=== PATIENT | female | born 1995 | race Caucasian/White ===

== ENCOUNTER 2019-01-25 22:54 | Emergency (ER) | payer BC ==
[2019-01-25 23:59] LABS: #Eosinphils 0.1 thou/uL (0.0-0.7); #Lymphocytes 3.9 thou/uL (1.20-3.40); #Monocytes 0.5 thou/uL (0.11-0.59); #Neutrophils 5.6 thou/uL (1.40-6.50); %Basophils 0.1 % (0.0-1.0); %Eosinophils 0.8 % (0.0-10.0); %Lymphocytes 38.8 % (21.0-51.0); %Monocytes 5.2 % (0.0-10.0); %Neutrophils 55.1 % (42.0-75.0); Hemoglobin 9.8 g/dL (12.0-16.0); Mean Corpuscular Hemoglobin 20.6 pg (27.0-31.0); Mean Corpuscular Volume 66.4 fL (78.0-98.0); Mean Platelet Volume 5.6 fL (7.4-10.4); Platelet Count 246 thou/uL (130-400); RBC Distribution Width 20.9 % (11.5-14.5); Red Blood Cell (RBC) Count 4.76 mill/uL (4.20-5.40); White Blood Cell (WBC) Count 10.1 thou/uL (4.8-10.8)
[2019-01-26 01:28] LABS: Bacteria/HPF 1+ HPF (None Seen); Bilirubin Negative (Negative); Blood, Urine 2+ (Negative); Clarity Clear (Clear); Glucose, Urine (Dipstick) Normal (Negative); Leukocyte Negative Leu/uL (Negative); Nitrite Negative (Negative); Protein, Urine (Dipstick) Negative (Neg-Trace); RBC/HPF 0-3 HPF (0-3); Squamous Epithelial 0-3 HPF (0-3); Urobilinogen Normal mg/dL (Less than 2); WBC/HPF 0-3 HPF (0-3)
--- NOTE | 2019-01-26 06:08 | ULT ---
FIRST TRIMESTER OBSTETRICAL ULTRASOUND: INDICATIONS: History of vaginal spotting and . FINDINGS: There is a single intrauterine gestational sac, containing a pole. Mean sac diameter is 4.05 c m, giving an estimated gestational age of 9 weeks 4 days. The crown-rump length is 1.98 cm, giving an estimated gestational age of 8 weeks 4 days. The average gestational age by ultrasound is 9 weeks 1 day with an estimated due date of 08/30/2019. Clinical age is 11 weeks 1 day with an estimated due date of 08/16/2019. The uterus measures 12.4 x 5.9 x 7.5 cm. The left ovary measures 3.6 x 2 x 1.9 cm. There is normal flow to the left ovary. The right ovary is not well seen. There is a subchorionic hemorrhage seen along the superior aspect of the gestational sac, measuring 1 .7 cm. There is no demonstrable cardiac activity associated with the pole. IMPRESSION: 1. No demonstrable heart tones associated with the pole. Findings are suspicious for in trauterine demise. Continued clinical and sonographic followup is recommended. 2. Subchorionic hemorrhage along the superior aspect of the gestational sac. 3. Nonvisualization of the right ovary. POS: BH
== END 2019-01-26 01:20 | disposition home or self-care (01) ==
LOC: ERS 22:54
DX: O20.0 Threatened abortion (principal); Z3A.11 11 weeks gestation of pregnancy
CPT/HCPCS: 36415; 76856; 81003; 81015; 84702; 85025; 86900; 86901; 87480; 87491; 87510; 87591; 87660; 93976